=== PATIENT | female | born 1985 | race Caucasian/White ===

== ENCOUNTER 2019-09-21 06:08 | Day surgery (SDC) | payer BC ==
[~2019-09-21 06:08] MED LIST: Buffered Lidocaine 1% SYRIN* 1 ML/SYRINGE INTRADERM ONE; Dexamethasone IV* 4 MG/ML 1 ML (4 MG) IV SLOW PU ONE; Famotidine IV* 10 MG/ML 2 ML (20 mg) IV ONE; Lactated Ringers 1000 ML Bag* 1,000 ML IV SCH; Scopolamine 1.5 mg* PATCH TRANSDERM ONE
[2019-09-21] MEDS ORDERED: ceFAZolin 2 GM in NS PREMIX(*) 2 GM/100 ML BAG IVPB ONE (06:47)
[2019-09-21] MEDS ORDERED: Scopolamine 1.5 mg* PATCH ONE (06:49)
[2019-09-21] MEDS ORDERED: Dexamethasone IV* 4 MG/ML 1 ML (4 MG) ONE (06:49)
[2019-09-21] MEDS ORDERED: Ondansetron INJ* 2 MG/ML VIAL ONE (07:07)
[2019-09-21] MEDS ORDERED: Famotidine IV* 10 MG/ML 2 ML (20 mg) ONE (07:08)
[2019-09-21] MEDS ORDERED: Bupivacaine 0.25% SDV* 30 ML ONE (08:07)
[2019-09-21] MEDS ORDERED: Lidocaine 1% w EPI 1:100,000* MDV 20 ML VIAL ONE (08:07)
[2019-09-21] MEDS ORDERED: fentaNYL* 50 MCG/ML 5 ML VIAL (250 MCG VIAL) ONE (08:17)
[2019-09-21] MEDS ORDERED: Midazolam* 1 MG/ML 5 ML VIAL (5 MG) ONE (08:17)
[2019-09-21] MEDS ORDERED: Propofol* 10 MG/ML 20 ML BTL ONE (08:17)
[2019-09-21] MEDS ORDERED: Lidocaine 2% PF * 5 ML VIAL ONE (08:17)
[2019-09-21] MEDS ORDERED: Naloxone* 0.4 MG/ML 1 ML VIAL IV PRN (08:25)
[2019-09-21] MEDS ORDERED: PROCHLORPERAZINE INJ 5 MG/ML 2 ML VIAL IV PRN (08:25)
[2019-09-21] MEDS ORDERED: HYDROcodone/ACETAMIN 5-325 MG* 1 TAB PO PRN (08:25)
[2019-09-21] MEDS ORDERED: oxyCODONE/Acetamin 5/325 MG* TAB PO PRN (08:25)
[2019-09-21] MEDS ORDERED: Propofol* 500 MG/50 ML BTL ONE (08:42)
[2019-09-21] MEDS ORDERED: fentaNYL* 50 MCG/ML 2 ML VIAL (100 MCG VIAL) ONE ×2 (10:02→12:18)
[2019-09-21] MEDS: fentaNYL* 50 MCG/ML 2 ML VIAL (100 MCG VIAL) IV PRN ×2 (12:19→12:53)
[2019-09-21] MEDS ORDERED: HYDROcodone/ACETAMIN 5-325 MG* 1 TAB ONE (14:10)
[2019-09-21 14:36] VITALS: BP 136/91
[2019-09-24] MEDS ORDERED: Scopolamine PATCH Remove* 1 NOTE MISC PATCH OFF ONE (06:00)
== END 2019-09-21 15:13 | disposition home or self-care (01) ==
LOC: OR 06:08
PROVIDERS: ATTEND Plastic Surgery
DX: N62 Hypertrophy of breast (principal); M54.2 Cervicalgia; M54.9 Dorsalgia, unspecified; J45.990 Exercise induced bronchospasm
CPT/HCPCS: 81025; 88305; A9270-GY; A9272-GY; J0690; J1100; J2250; J2405; J2704; J3010; J3490

== ENCOUNTER 2019-12-21 12:14 | Emergency (ER) | payer BC ==
--- NOTE | 2019-12-21 13:23 | ED ---
Abdominal Pain/Female - HPI Summary HPI Summary: 34 year old F presenting to [facility] with a chief complaint of chest pain that she describes as a stabbing pain and nausea since 2 days ago. She was seen in the emergency department yesterday and was diagnosed with pleurisy. The patient rates the pain 8/10 in severity. Symptoms aggravated by deep breaths. Symptoms alleviated by nothing. Patient reports that the pain is coming in waves and can sometimes feel like her chest is spasming. She took Vicodin at 04:30 and 08:00 today. Patient denies any history of heart conditions or acid reflux. Medication list reviewed. Allergy list reviewed. - History of Current Complaint Chief Complaint: EDGeneral Stated Complaint: LUNG PAIN PER PT Time Seen by Provider: 12/21/19 13:13 Hx Obtained From: Patient Onset/Duration: Lasting Days, Still Present Timing: Constant Severity Currently: Moderate Pain Intensity: 8 Pain Scale Used: 0-10 Numeric Character: Other: - Stabbing Aggravating Factor(s): Deep Breaths Alleviating Factor(s): Nothing Associated Signs and Symptoms: Positive: Nausea Allergies/Adverse Reactions: Allergies Allergy/AdvReac Type Severity Reaction Status Date / Time dextromethorphan Allergy Nausea Verified 12/21/19 12:19 [From Dimetapp Cold-Congestion] diphenhydramine Allergy Nausea Verified 12/21/19 12:19 [From Dimetapp Cold-Congestion] fluoxetine Allergy Unknown Verified 12/21/19 12:19 Reaction Details guaifenesin Allergy Nausea Verified 12/21/19 12:19 [From Dimetapp Cold-Congestion] randy Allergy Nausea Verified 12/21/19 12:19 phenylephrine Allergy Nausea Verified 12/21/19 12:19 [From Dimetapp Cold-Congestion] pseudoephedrine Allergy Nausea Verified 12/21/19 12:19 [From Dimetapp Cold-Congestion] venlafaxine [From Effexor] Allergy Unknown Verified 12/21/19 12:19 Reaction Details BEE Allergy Unknown Uncoded 12/21/19 12:19 Reaction Details POISON ERAN Allergy Unknown Uncoded 12/21/19 12:19 Reaction Details Home Medications: Home Medications Ascorbic Acid TAB* [Vitamin C TAB*] 500 mg PO DAILY 09/13/19 [History Confirmed 12/21/19] BuPROPion XL* [Bupropion XL*] 300 mg PO DAILY 09/13/19 [History Confirmed ] Ferrous Sulfate TAB* 325 mg PO DAILY 09/13/19 [History Confirmed 12/21/19] L. Acidophilus/Pectin, [place] [Acidophilus/[place] Pectin] 1 tab PO DAILY [History Confirmed 12/21/19] Multivitamin [Multiple Vitamins] 1 each PO DAILY 09/13/19 [History Confirmed 04/03] l-Norgest/E.estradiol-E.estrad [Camrese Lo] 1 tab PO DAILY 09/13/19 [History Confirmed 12/21/19] Ibuprofen TAB* [Motrin TAB* 800 MG] 800 mg PO Q8H #20 tab 12/21/19 [Rx] Ondansetron HCl [Zofran] 4 mg PO Q8HR PRN #15 tablet 12/21/19 [Rx] diPHENhydraMINE PO* [Benadryl PO 25 MG TAB*] 25 mg PO BEDTIME PRN 12/21/19 [ History Confirmed 12/21/19] PMH/Surg Hx/FS Hx/Imm Hx Endocrine/Hematology History: Denies: Hx Diabetes Cardiovascular History: Denies: Hx Hypertension, Other Cardiovascular Problems/Disorders Respiratory History: Reports: Hx Asthma - EXERCISE INDUCED-REPORTS HAS PRN INHALER FOR Denies: Other Respiratory Problems/Disorders GI History: Reports: Other GI Disorders - "SMALL INTESTINAL BACTERIA OVERGROWTH "-REPORTS IS PRONE TO History: Denies: Hx Renal Disease, Other Problems/Disorders Musculoskeletal History: Denies: Other Musculoskeletal History Sensory History: Denies: Hx Contacts or Glasses, Hx Hearing Aid Opthamlomology History: Denies: Hx Contacts or Glasses Neurological History: Denies: Other Neuro Impairments/Disorders Psychiatric History: Reports: Hx Anxiety - ON MEDICATION FOR, Hx Depression - ON MEDICATION FOR - Surgical History Surgery Procedure, Year, and Place: 2013-LASIK EYE SURGERY-[facility]. [facility]- [facility] Hx Anesthesia Reactions: No Infectious Disease History: No Infectious Disease History: Denies: Traveled Outside the [place] in Last 30 Days - Family History Known Family History: Positive: Other - blood clot/DVT in mother Negative: Hypertension, Diabetes - Social History Alcohol Use: Rare Hx Substance Use: Yes Substance Use Type: Reports: Marijuana Substance Use Comment - Amount & Last Used: MARIJUANA OCCASIONALLY Hx Tobacco Use: No Smoking Status (MU): Never Smoked Tobacco Have You Smoked in the Last Year: No Review of Systems Positive: Chest Pain Positive: Nausea All Other Systems Reviewed And Are Negative: Yes Physical Exam - Summary Physical Exam Summary: Constitutional: Well-developed, Well-nourished, Alert. (-) Distressed Skin: Warm, Dry HENT: Normocephalic; Atraumatic Eyes: Conjunctiva normal Neck: Musculoskeletal ROM normal neck. (-) JVD, (-) Stridor, (-) Tracheal deviation Cardio: Rhythm regular, rate normal, Heart sounds normal; Intact distal pulses; The pedal pulses are 2+ and symmetric. Radial pulses are 2+ and symmetric. (-) Murmur Pulmonary/Chest wall: Effort normal. (-) Respiratory distress, (-) Wheezes, (-) Rales Abd: Soft, (-) tenderness, (-) Distension, (-) Guarding, (-) Rebound Musculoskeletal: (-) Edema Lymph: (-) Cervical adenopathy Neuro: Alert, Oriented x3 Psych: Mood and affect Normal Triage Information Reviewed: Yes Vital Signs On Initial Exam: Initial Vitals Temp Pulse Resp BP Pulse Ox 98.1 F 106 16 135/95 97 12/21/19 12:17 12/21/19 12:17 12/21/19 12:17 12/21/19 12:17 12/21/19 12:17 Vital Signs Reviewed: Yes Procedures - Sedation Patient Received Moderate/Deep Sedation with Procedure: No Diagnostics - Vital Signs Vital Signs Temp Pulse Resp BP Pulse Ox 12/21/19 12:17 98.1 F 106 16 135/95 97 - Laboratory Result Diagrams: 12/21/19 13:50 12/21/19 13:50 Lab Statement: Any lab studies that have been ordered have been reviewed, and results considered in the medical decision making process. - Radiology Chest x-ray Radiology Interpretation Completed By: Radiologist Summary of Radiographic Findings: #. Mild LEFT basilar airspace consolidation is most suggestive of atelectasis given presence of a small pleural effusion without gross change compared with the CT of one day prior. ED physician has reviewed this report. - CT Chest/Thorax CTA CT Interpretation Completed By: Radiologist Summary of CT Findings: 1. Stable small left pleural effusion. 2. No visible acute pulmonary embolism. 3. No aortic dissection. ED physician has reviewed this report. - EKG 13:42 Cardiac Rate: NL - 96 BPM EKG Rhythm: Sinus Rhythm Summary of EKG Findings: Normal ECG. Dr. Pizano has reviewed and interpreted this EKG. Abdominal Pain Fem Course/Dx - Course Course Of Treatment: 34 year old F presenting to [facility] with a chief complaint of chest pain that she describes as a stabbing pain and nausea since 2 days ago. Physical exam findings revealed no abnormalities. An EKG reveals sinus rhythm rate of 96 BPM, normal ECG. CXR reveals, per radiologist, #. Mild LEFT basilar airspace consolidation is most suggestive of atelectasis given presence of a small pleural effusion without gross change compared with the CT of one day prior. Chest/Thorax CTA reveals, per radiologist, 1. Stable small left pleural effusion. 2. No visible acute pulmonary embolism. 3. No aortic dissection. Laboratory results with no significant abnormalities except for an MPV of 6.2, sodium of 132, chloride of 99, C-Reactive protein of 106.60, INR of 1.10, and D-Dimer of 260. In the ED course, the patient was given Toradol, normal saline, and Zofran. We discussed patient care with Dr. Aponte at 16:16 who did not recommend steroid use for possible diagnosis of pleurisy. Patient will be discharged with prescriptions for Ibuprofen and Zofran and follow up from Dr. Chacko. The patient is agreeable with this plan. - Diagnoses Provider Diagnoses: Atypical chest pain, Pleural effusion - Provider Notifications Discussed Care Of Patient With: Jonathan Aponte Time Discussed With Above Provider: 16:16 Instructed by Provider To: Other - Discussed with Dr. Aponte, he does not recommend steroid use for possible diagnosis of pleurisy. Discharge ED - Sign-Out/Discharge Documenting (check all that apply): Patient Departure - Discharge Plan Condition: Stable Disposition: HOME Prescriptions: Ibuprofen TAB* [Motrin TAB* 800 MG] 800 mg PO Q8H #20 tab Ondansetron HCl [Zofran] 4 mg PO Q8HR PRN #15 tablet PRN Reason: Nausea Patient Education Materials: Chest Pain (ED), Pleural Effusion (ED) Referrals: Monse Chacko MD [Primary Care Provider] - 3 Days Additional Instructions: Follow-up with your PCP in 2-3 days. Return to the emergency department for changing or worsening symptoms. - Billing Disposition and Condition Condition: STABLE Disposition: Home - Attestation Statements Document Initiated by Scribe: Yes Documenting Scribe: Teresa Fung Provider For Whom [place] is Documenting (Include Credential): Finn Pizano DO Scribe Attestation: Teresa Elmore, scribed for Finn Pizano DO on 12/22/19 at 0742. Scribe Documentation Reviewed: Yes Provider Attestation: The documentation as recorded by the Teresa truong accurately reflects the service I personally performed and the decisions made by , Finn Pizano DO Status of Scribe Document: Viewed
[2019-12-21] MEDS ORDERED: Ketorolac *IM* INJ* 60 MG/2 ML VIAL IM ONE (13:26)
[2019-12-21 13:59] LABS: ABS Basophils 0.1 10^3/ul (0-0.2); ABS Lymphocytes 2.2 10^3/ul (1.0-4.8); ABS Monocytes 0.6 10^3/ul (0-0.8); ABS Neutrophils 7.4 10^3/ul (1.5-7.7); Eosinophil % 0.4 %; Hematocrit 38 % (35-47); Hemoglobin 13.5 g/dL (12.0-16.0); Lymphocyte % 21.3 %; Mean Corpuscular HGB Conc 35 g/dL (31-36); Mean Corpuscular Hemoglobin 29 pg (27-31); Mean Corpuscular Volume 83 fL (80-97); Mean Platelet Volume 6.2 fL (7.4-10.4); Platelet Count 295 10^3/uL (150-450); Red Blood Count 4.63 10^6 /uL (3.70-4.87); Red Cell Distribution Width 13 % (10-15); White Blood Count 10.3 10^3/uL (3.5-10.8)
[2019-12-21 14:15] LABS: C Reactive Protein 106.6 mg/L (<8.01); Calcium 9.1 mg/dL (8.6-10.3); EGFR African American 105.8 (>60); EGFR Non-African American 87.4 (>60); Potassium 4.1 mmol/L (3.5-5.0)
[2019-12-21] MEDS ORDERED: Ondansetron ODT TAB* 4 MG PO ONE (14:32)
[2019-12-21 15:15] LABS: Erythrocyte Sed Rate 19 mm/Hr (0-19)
[2019-12-21] MEDS ORDERED: NS 0.9% 1000 ML** 1,000 ML IV ONE (17:35)
[2019-12-21 17:51] LABS: Activated Partial Thrombo Time 28.9 seconds (26.0-38.0); INR 1.1 (0.82-1.09)
[2019-12-21] MEDS ORDERED: Iohexol 350* (CONTRAST) 500 ML MDV IV ONE (18:06)
[2019-12-21 19:58] VITALS: BP 148/92
== END 2019-12-21 19:59 | disposition home or self-care (01) ==
LOC: ED 12:14
DX: R07.89 Other chest pain (principal); J90 Pleural effusion, not elsewhere classified; J45.909 Unspecified asthma, uncomplicated; F41.9 Anxiety disorder, unspecified; F32.9 Major depressive disorder, single episode, unspecified; Z79.899 Other long term (current) drug therapy; Z88.8 Allergy status to other drugs, medicaments and biological substances
CPT/HCPCS: 36415; 71045; 71275; 80048; 84484; 85025; 85379; 85610; 85652; 85730; 86140; 93005; 96360; 96372; 99283; A9270-GY; J1885; Q9967